=== PATIENT | female | born 1935 | race Caucasian/White ===

== ENCOUNTER 2017-02-01 00:41 | Inpatient (IN) | payer MEDICARE, BC ==
[~2017-02-01] VITALS: Ht 162.6 cm; Wt 70.2 kg
[2017-02-04] MEDS ORDERED: ARAVA DPS20 MG PO (17:00)
[2017-02-04] MEDS ORDERED: MONTELUKAST SOD10 MG PO (17:01)
[2017-02-04] MEDS ORDERED: ATIVAN-DPS0.5 MG PO (17:01)
[2017-02-04] MEDS ORDERED: SYMBICORT80 MCG/6.9 IH (17:01)
[2017-02-04] MEDS ORDERED: EFFEXOR XR75 MG PO (17:02)
[2017-02-04] MEDS ORDERED: THERA1 EACH PO (17:03)
[2017-02-04] MEDS ORDERED: VITAMIN D31000 UNIT PO (17:03)
[2017-02-04] MEDS ORDERED: FLONASE 0.05% D16 GM NS (17:03)
[2017-02-04] MEDS ORDERED: VISION VITAMIN1 EACH PO (17:04)
[2017-02-04] MEDS ORDERED: LASIX DPS20 MG PO (17:05)
[2017-02-04] MEDS ORDERED: MAALOX DPS30 ML PO (17:06)
[2017-02-04] MEDS ORDERED: COLACE-DPS100 MG PO (17:06)
[2017-02-04] MEDS ORDERED: DUONEB DPS3 ML IH (17:06)
[2017-02-04] MEDS ORDERED: TYLENOL DPS325 MG PO (17:06)
[2017-02-04] MEDS ORDERED: DELTASONE DPS10 MG PO (17:08)
--- NOTE | 2017-02-04 19:49 | ER ---
ADMIT: 02/01/2017 RM/LOC: 428 [facility] MR#: [id number] 26[address] [facility] [address] [place], [place] [address] JUAN GODFREY [address] [place] [address] Emergency Room Report SEX: F AGE: 81 : 1935 DATE: 02/01/2017 HISTORY OF PRESENT ILLNESS: The patient is an 81-year-old female with past medical history of hypertension, coronary artery disease and has pacemaker, and asthma, came to the ER with chief complaint of feeling tired and feeling weak and had an episode of syncope after going to the bathroom. The patient states she went to the bathroom, after 10 to 12 steps coming out of the bathroom, she felt dizzy and tired and she fell. The patient denies any head trauma. was around and states that the patient had no head trauma and no loss of consciousness. The patient was ambulating after that and came to the ER for followups of the generalized weakness. PHYSICAL EXAMINATION: GENERAL: In the ER, the patient was in no obvious pain or distress. VITAL SIGNS: Blood pressure was 109/75, with heart rate of 67, and respiratory rate of 18. The patient had low temperature fever of 100.5, for which she was given Tylenol. HEAD and NECK: Noncontributory. Trachea was midline. LUNGS: In the lungs, the patient had crackles on the left lower lung. HEART: The patient had S1-S2, I did not hear any S3 or S4. ABDOMEN: Soft and nontender. EXTREMITIES: Lower extremities had no swelling or tenderness. Motor and sensory were grossly normal. NEUROLOGICAL: Grossly normal. EKG was negative, for any ST or T changes or ischemia. Troponin level was 0.036. Chest x-ray was questionable for left lung infiltration. WBC was elevated to 22,100, with 19,000 neutrophils. D-dimer was also elevated to 1.68. CT angiogram of the chest was negative for PE, but was also affirmative in addition to chest x-ray for pneumonia. The patient was started on vancomycin and Zosyn and was admitted to Internal Medicine Service for further followups and treatments of pneumonia and syncope. Meanwhile, the interrogation of the pacer is in progress. Jesus Tucker MD/ mckenna JOB #: [id number] CC: Wilber Aranda DO, Attending Physician Wilber Aranda DO, Family Physician
--- NOTE | 2017-02-05 08:23 | HP ---
ADMIT: 02/01/2017 RM/LOC: 428 [facility] MR#: [id number] [address] [facility] [address] [place] [id number] JUAN GODFREY Elvia [address] [place] [address] History and Physical SEX: F AGE: 81 : 1935 DATE OF SERVICE: 02/01/2017 REASON FOR HOSPITALIZATION: Early pneumonia and general declining status. HISTORY: An 81-year-old, female patient, who is known to me from outpatient clinical care. She was admitted last evening through the emergency room for weakness, syncope, and findings of atelectasis, probable early pneumonia on chest x-ray. At the time of her admission, she was found to have a bedbug infestation. She has a past medical history of anxiety, depression, memory loss, asthma, pacemaker, hypertension, coronary artery disease, osteoarthritis, reflux disease, and rheumatoid arthritis. MEDICATIONS: Include: 1. Arava 20 mg daily. 2. Prednisone 10 mg daily. 3. Omeprazole 40 mg daily. 4. Symbicort two puffs b.i.d. 5. Singulair 10 mg daily. 6. Ativan 0.5 mg t.i.d. p.r.n. 7. Effexor 75 mg at bedtime. 8. Ibuprofen 200 mg b.i.d. p.r.n. 9. Fluticasone nasal spray b.i.d. 10.Daily women's vitamin. 11.Vitamin D3. 12.Vision Formula Vitamins. 13.Calcium, magnesium and zinc. 14.Stress formula with iron. ALLERGIES: SHE HAS MULTIPLE LIST OF ALLERGIES AND INTOLERANCES INCLUDING DAPHNIE INHIBITORS, AZITHROMYCIN, DOXYCYCLINE, HYDROCHLOROTHIAZIDE, QUINOLONES, NYSTATIN, SULFA AND TRAMADOL. SOCIAL HISTORY: She has been living at home with her , and both are retired. Her recently underwent a coronary artery bypass surgery. She also has a son and grandchild who lives with. Her son is in fairly poor physical shape and condition and this causes her a great deal of stress. FAMILY HISTORY: Noncontributory. REVIEW OF SYSTEMS: GENERAL: Right now, she is pretty lethargic. She arouses but does not really want to talk. She stays let me sleep. She is usually very pleasant, alert, and oriented at baseline. She is currently afebrile. ADMIT: 02/01/2017 RM/LOC: 428 [facility] MR#: [id number] [address] [address] JUAN GODFREY [address] [place] [address] History and Physical SEX: F AGE: 81 : 1935 HEART: Regular. She does have pacemaker. Pulmonary rales in the bases. ABDOMEN: Soft. EXTREMITIES: No edema. LABORATORY DATA: BUN 12, creatinine 0.9, white count 22.1. Hemoglobin 13.2. CT of the chest is pending. Chest x-ray suggests atelectasis, possible early pneumonia. IMPRESSION: Early pneumonia, chronic steroid therapy, Bedbug infestation, chronic anxiety, depression, chronic steroid therapy. PLAN: Admit. Antibiotics, stress steroid coverage, and attention to hygiene. Wilber Aranda DO/ mckenna JOB #: [id number] CC: Wilber Aranda, Attending Physician Wilber Aranda, Family Physician
--- NOTE | 2017-03-10 08:05 | DS ---
ADMIT: 02/01/2017 RM/LOC: 428 [facility] MR#: [id number] [address] [facility] [address] [place] [id number] JUAN GODFREY [address] [place] [address] Discharge Summary SEX: F AGE: 81 : 1935 ADMISSION DATE: 02/01/2017 DISCHARGE DATE: 02/03/2017 REASON FOR HOSPITALIZATION AND INITIAL DIAGNOSIS: Pneumonia. HISTORY: An 81-year-old female patient who came to the emergency room for weakness, syncope, and findings of atelectasis, suspicious for early pneumonia on chest x-ray. Through the emergency room, she had admission orders arranged to include nebulized treatments, IV vancomycin, and IV Zosyn. She underwent serial cardiac enzymes. Pacemaker was interrogated. She does have chronic steroid history. I checked cortisol and gave her stress steroid replacement. Her cortisol level was 32.2. She had a TSH of 0.84. CT scan of the chest did not reveal evidence of pulmonary embolism, although did show chronic fibrosis, hiatal hernia, and small pleural effusion. On 02/02, I gave her oral Lasix, changed her to oral prednisone therapy and by 02/03, she was feeling much better and ultimately diagnosed with acute exacerbation of asthma and anxiety. We dismissed her home with plans to return to see me in 7-10 days. She was to have a tapering dose of prednisone to the point where she returned to her baseline of 7.5 mg p.o. daily. Wilber Aranda DO/ eladial JOB #: [id number] CC: Wilber Aranda DO, Attending Physician Wilber Aranda DO, Family Physician
== END 2017-02-03 12:03 | disposition home or self-care (01) | DRG 203 ==
LOC: ER 00:41 → 4PCU 05:00
PROVIDERS: ADMIT Internal Medicine
DX: J45.901 Unspecified asthma with (acute) exacerbation (principal); J84.10 Pulmonary fibrosis, unspecified; M06.9 Rheumatoid arthritis, unspecified; I10 Essential (primary) hypertension; I25.10 Atherosclerotic heart disease of native coronary artery without angina pectoris; B88.8 Other specified infestations; F32.9 Major depressive disorder, single episode, unspecified; F41.9 Anxiety disorder, unspecified; R41.3 Other amnesia; M19.90 Unspecified osteoarthritis, unspecified site; K21.9 Gastro-esophageal reflux disease without esophagitis; Z79.52 Long term (current) use of systemic steroids; Z95.0 Presence of cardiac pacemaker; Z91.81 History of falling